=== PATIENT | male | born 1975 | race Two or more races ===

== ENCOUNTER 2022-03-17 18:21 | Emergency (ER) | payer OTHER ==
[~2022-03-17] VITALS: Ht 185.4 cm; Wt 77.1 kg
== END 2022-03-17 21:19 | disposition home or self-care (01) ==
LOC: ER 18:21
DX: L08.9 Local infection of the skin and subcutaneous tissue, unspecified (principal); B95.8 Unspecified staphylococcus as the cause of diseases classified elsewhere

== ENCOUNTER 2024-11-14 00:26 | Emergency (ER) | payer OTHER ==
[~2024-11-14] VITALS: Ht 175.3 cm; Wt 63.5 kg
[2024-11-14] MEDS ORDERED: 0.9 % SODIUM CHLORIDE 1,000 ML IV STA (03:55)
[2024-11-14] MEDS ORDERED: HYOSCYAMINE SULFATE 0.125 MG TAB.SUBL SL STA (03:56)
[2024-11-14] MEDS ORDERED: MORPHINE SULFATE 4 MG/ML VIAL IV STA (03:57)
[2024-11-14 04:50] LABS: HEMATOCRIT 37.7 % (39.0-48.0); MEAN CELL VOLUME 92.1 fL (80.0-100.00); MEAN CORPUSCULAR HEMOGLOBIN 31.8 pg (27.00-32.0); MEAN CORPUSCULAR HGB CONC 34.5 g/dl (32.0-36.0); PLATELET COUNT 358 K/uL (150-450); RED BLOOD COUNT 4.09 M/uL (4.00-6.00); RED CELL DISTRIBUTION WIDTH 14.1 % (11.5-14.5)
[2024-11-14 04:56] LABS: CALCIUM 8.3 mg/dL (8.5-10.1); CREATININE SERUM 0.97 mg/dL (0.70-1.30); GFR 82.61; POTASSIUM 3.05 mEq/L (3.5-5.1)
[2024-11-14] MEDS ORDERED: DIPHENOXYLATE HCL/ATROPINE 1 UDTAB TABLET PO STA (05:12)
[2024-11-14 08:13] LABS: FECAL LEUKOCYTES POSITIVE (NEGATIVE); ob POSITIVE (NEGATIVE)
[2024-11-14] MEDS ORDERED: METRONIDAZOLE/SODIUM CHLORIDE 500 MG/100 ML PIGGYBACK IV ONE (09:15)
== END 2024-11-14 11:49 | disposition home or self-care (01) ==
LOC: ER 00:26
DX: K52.89 Other specified noninfective gastroenteritis and colitis (principal); R10.9 Unspecified abdominal pain; Z88.0 Allergy status to penicillin; I88.0 Nonspecific mesenteric lymphadenitis